=== PATIENT | male | born 1945 | race Caucasian/White ===

== ENCOUNTER 2018-05-28 10:12 | Outpatient (CLI) | payer MEDICARE, OTHER ==
--- NOTE | 2018-05-28 12:13 | MRI ---
MRI LEFT KNEE: 05/28/2018 PROVIDED CLINICAL HISTORY: Left knee pain status post injury. FINDINGS: The anterior cruciate ligament, posterior cruciate ligament, medial collateral ligament, and lateral collateral ligamentous complex demonstrate an intact MR appearance. There is focal fluid signal intensity within the undersurface fibers of the quadriceps tendon, compat ible with partial tearing. There is marrow edema present within the patella. The medial and lateral menisci demonstrate no evidence for tear. Focal articular cartilage defect, measuring about 1 cm in AP dimension and about 2 mm in transverse d imension, involves the posterior central weight bearing portions of the medial femoral condyle and in volves greater than 50% of cartilage thickness. A 4 mm cartilage defect is seen involving the field kiln burner ior aspect of the medial femoral condyle. There is diffuse articular cartilage thinning involving th e patellar cartilage without focal defect. There is a small knee joint effusion. There is partial fatty infiltration involving the lateral head of the gastrocnemius muscle, proximall y. Partial fatty infiltration involves the medial head of the gastrocnemius muscle as well. IMPRESSION: 1. Partial thickness tearing of the distal quadriceps tendon. 2. Patella and marrow edema may reflect contusion or reaction to the quadriceps tendon injury. 3. Femoral articular cartilage defects, as described above. 4. Small knee joint effusion. 5. Fatty infiltration involving the medial and lateral heads of the gastrocnemius muscle, which may reflect chronic denervation. POS: [facility]
== END 2018-05-28 10:13 | disposition home or self-care (01) ==
LOC: TBSIIMAG 10:12
PROVIDERS: ATTEND Orthopaedic Surgery
DX: M23.92 Unspecified internal derangement of left knee (principal); S76.112A Strain of left quadriceps muscle, fascia and tendon, initial encounter; R60.0 Localized edema; M25.462 Effusion, left knee; M62.89 Other specified disorders of muscle